=== PATIENT | male | born 1950 | race Caucasian/White ===

== ENCOUNTER 2020-12-22 23:15 | Emergency (ER) | payer MEDICARE, OTHER ==
[~2020-12-22] VITALS: Ht 185.4 cm; Wt 90.0 kg
--- NOTE | 2020-12-22 23:15 | NUR ---
[facility]. Patient presented to prior hospital with fever and acute lower back pain x 20 hours. Prior erp transferred patient to r/o spinal abscess patient received 1l ns, 10mg of dexamethasone, 15mg of toradol , 1gm of rocephin & 1gm of vancomycin
[2020-12-22] MEDS ORDERED: SODIUM CHLORIDE FLUSH 10ML SYR IVF ONE (23:30)
--- NOTE | 2020-12-22 23:53 | NUR ---
MRI FORM COMPLETED AND FAXED TO [phone]
[2020-12-23] MEDS ORDERED: LORazepam 2 MG/ML, 1ML ONE (00:07)
[2020-12-23] MEDS ORDERED: GADOTERATE 10 MMOL/20ML SYR ONE (00:17)
--- NOTE | 2020-12-23 00:51 | NUR ---
back from mri no change in neuro exam "my back actually feels alot better." Updated on estimated poc
--- NOTE | 2020-12-23 01:09 | NUR ---
REPORT TO ALIS DARDEN
[2020-12-23 02:03] VITALS: BP 110/49
[2020-12-23] MEDS ORDERED: METHOCARBAMOL 750 MG TABLET ONE (02:55)
[2020-12-23] MEDS ORDERED: METHOCARBAMOL 500 MG TABLET ONE (02:56)
[2020-12-23] MEDS ORDERED: METHOCARBAMOL 500 MG TABLET PO ONE (03:00)
== END 2020-12-23 03:06 | disposition home or self-care (01) ==
LOC: ED 12-23 02:30
DX: S39.012A Strain of muscle, fascia and tendon of lower back, initial encounter (principal); J15.9 Unspecified bacterial pneumonia; B34.9 Viral infection, unspecified; I10 Essential (primary) hypertension; M10.9 Gout, unspecified; X58.XXXA Exposure to other specified factors, initial encounter; Y93.89 Activity, other specified; Y99.8 Other external cause status
CPT/HCPCS: 71045; 72158; 99285; A9575